=== PATIENT | male | born 1960 | race Caucasian/White ===

== ENCOUNTER → 2016-12-13 | Outpatient (CLI) | payer BC ==
[~2016-12-13] MED LIST: CELE-85 PO; FEXO30TA10 PO; METO50TA5 PO; OMEP20TA11 PO; SIMV40TA5 PO
== END ==
LOC: LAB 15:21
PROVIDERS: ATTEND Physician Assistant
DX: K52.9 Noninfective gastroenteritis and colitis, unspecified (principal); R19.7 Diarrhea, unspecified
CPT/HCPCS: 87507